=== PATIENT | female | born 2000 | race American Indian/Alaskan Native ===

== ENCOUNTER 2020-06-05 10:13 | Emergency (ER) | payer MEDICAID, OTHER ==
[2020-06-05 10:49] VITALS: BP 145/87; PULSE 81
[2020-06-05] MEDS ORDERED: Sodium Chloride 0.9% 10 ML Syringe FLUSH PRN ×2 (11:21→11:34)
[2020-06-05] MEDS ORDERED: Iopamidol 612 MG/ML 50 ML SDV IVPUSH ONE (11:34)
[2020-06-05] MEDS ORDERED: cefTRIAXone 2 GM in Sodium Chloride 0.9% 100 ML IV ONE (13:17)
--- NOTE | 2020-06-05 13:48 | EDM.PDOC ---
ED HPI GENERAL MEDICAL PROBLEM - General Chief Complaint: Skin Complaint Stated Complaint: INFECTION ON CHIN Time Seen by Provider: 06/05/20 10:43 Source of Information: Reports: Patient History Limitations: Reports: No Limitations - History of Present Illness INITIAL COMMENTS - FREE TEXT/NARRATIVE: The patient presents with an abscess to her chin. This has been going on for a few days. On Wednesday she was seen at [facility] and it was lanced and she was put on bactrim. She has more swelling and pain. She has no more discharge. She has no fever or chills. Onset: Gradual Duration: Day(s): Location: Reports: Face Quality: Reports: Burning Severity: Moderate Improves with: Reports: None Worsens with: Reports: None Associated Symptoms: Reports: No Other Symptoms Jaw Pain Score (Numeric/FACES): 4 - Related Data Allergies Allergy/AdvReac Type Severity Reaction Status Date / Time No Known Allergies Allergy Verified 06/05/20 10:48 Home Meds: Home Meds . [No Known Home Meds] 02/24/16 [History] Past Medical History - Past Health History Medical/Surgical History: Denies Medical/Surgical History Genitourinary History: Reports: UTI, Recurrent Social & Family History - Tobacco Use Smoking Status *Q: Current Every Day Smoker Years of Tobacco use: 4 Packs/Tins Daily: 0.5 - Caffeine Use Caffeine Use: Reports: Soda - Living Situation & Occupation Living situation: Reports: Single Occupation: Student ED ROS GENERAL - Review of Systems Review Of Systems: See Below Constitutional: Reports: No Symptoms HEENT: Reports: Other (Chin swelling) Respiratory: Reports: No Symptoms Cardiovascular: Reports: No Symptoms Endocrine: Reports: No Symptoms GI/Abdominal: Reports: No Symptoms : Reports: No Symptoms Musculoskeletal: Reports: No Symptoms ED EXAM, SKIN/RASH Exam: See Below Exam Limited By: No Limitations General Appearance: Alert, No Apparent Distress Ears: Normal External Exam Nose: Normal Inspection Head: Other (Erythema and edema to the chin with some swollen lymph nodes under her mandible) Neck: Normal Inspection, Supple, Non-Tender Respiratory/Chest: No Respiratory Distress, Lungs Clear, Normal Breath Sounds Cardiovascular: Regular Rate, Rhythm, No Edema, No Murmur GI/Abdominal: Soft, Non-Tender, No Organomegaly, No Mass Extremities: Normal Inspection Neurological: Alert, Oriented, No Motor/Sensory Deficits Course - Vital Signs Last Recorded V/S: Last Vital Signs Temp 98.1 F 06/05/20 10:46 Pulse 81 06/05/20 10:46 Resp 18 06/05/20 10:46 BP 145/87 H 06/05/20 10:46 Pulse Ox 100 06/05/20 10:46 - Orders/Labs/Meds Orders: Active Orders 24 hr Category Date Time Status Peripheral IV Care [RC] . DIRECTED Care 06/05/20 11:21 Active Maxillofacial with CM [Max Facial Sinus w Cont] [CT] Exams 06/05/20 11:22 Taken Stat Sodium Chloride 0.9% [Saline Flush] Med 06/05/20 11:21 Active 10 ml FLUSH ASDIRECTED PRN Sodium Chloride 0.9% [Saline Flush] Med 06/05/20 11:34 Active 10 ml FLUSH ONETIME PRN cefTRIAXone [Rocephin] 2 gm Med 06/05/20 13:17 Active Sodium Chloride 0.9% [Normal Saline] 100 ml IV ONETIME Peripheral IV Insertion Adult [OM.PC] Routine Oth 06/05/20 11:21 Ordered Medication Orders Ceftriaxone Sodium 2 gm/ (Sodium Chloride) 100 mls @ 200 mls/hr IV ONETIME ONE Stop: 06/05/20 13:46 Last Admin: 06/05/20 13:36 Dose: 200 mls/hr Documented by: MIRTA Sodium Chloride (Saline Flush) 10 ml FLUSH ASDIRECTED PRN PRN Reason: Keep Vein Open Last Admin: 06/05/20 11:59 Dose: 10 ml Documented by: MIRTA Sodium Chloride (Saline Flush) 10 ml FLUSH ONETIME PRN PRN Reason: IV FLUSH Last Admin: 06/05/20 12:06 Dose: 10 ml Documented by: SINCERE Labs: Laboratory Tests 06/05/20 06/05/20 Range/Units 12:18 12:18 WBC 9.65 (3.98-10.04) K/mm3 RBC 4.62 (3.98-5.22) M/mm3 Hgb 13.7 (11.2-15.7) gm/dl Hct 41.1 (34.1-44.9) % MCV 89.0 (79.4-94.8) fl MCH 29.7 (25.6-32.2) pg MCHC 33.3 (32.2-35.5) g/dl RDW Std Deviation 42.9 (36.4-46.3) fL Plt Count 293 (182-369) K/mm3 MPV 9.4 (9.4-12.3) fl C-Reactive Protein 3.7 H* (<1.0) mg/dL Meds: Medications Generic Name Dose Route Start Last Admin Trade Name Freq PRN Reason Stop Dose Admin Ceftriaxone Sodium 2 gm/ 100 mls @ 200 mls/hr 06/05/20 13:17 06/05/20 13:36 Sodium Chloride IV 06/05/20 13:46 200 mls/hr ONETIME ONE Administration Sodium Chloride 10 ml 06/05/20 11:21 06/05/20 11:59 Saline Flush FLUSH 10 ml ASDIRECTED PRN Administration Keep Vein Open Sodium Chloride 10 ml 06/05/20 11:34 06/05/20 12:06 Saline Flush FLUSH 10 ml ONETIME PRN Administration IV FLUSH Discontinued Medications Generic Name Dose Route Start Last Admin Trade Name Freq PRN Reason Stop Dose Admin Iopamidol 50 ml 06/05/20 11:34 06/05/20 12:06 Isovue-300 (61%) IVPUSH 06/05/20 11:35 50 ml ONETIME ONE Administration - Re-Assessments/Exams Free Text/Narrative Re-Assessment/Exam: 06/05/20 13:46 I ordered an IV saline lock, CT of her face, and labs. Her CBC looks good. Her CRP is elevated. Her CT shows right sided submental inflammatory changes with a small suspicion for an abscess. This does not appear big enough to drain. I have ordered rocephin 2 grams IV and she is on bactrim. Departure - Departure Time of Disposition: 13:50 Disposition: Home, Self-Care 01 Condition: Good Clinical Impression: Facial cellulitis - Discharge Information *PRESCRIPTION DRUG MONITORING PROGRAM REVIEWED*: Not Applicable *COPY OF PRESCRIPTION DRUG MONITORING REPORT IN PATIENT WALTER: Not Applicable Referrals: PCP,None [Primary Care Provider] - Herbert Fan MD [Physician] - 1 Week Additional Instructions: Put warm compresses on your chin 3 to 5 times per day. Take the bactrim 2 times per day until gone. Follow up with Dr Fan within a week if you are not better. Please return if you are worse. Sepsis Event Note (ED) - Evaluation Sepsis Screening Result: No Definite Risk - Focused Exam Vital Signs: Vital Signs Temp Pulse Resp BP Pulse Ox 06/05/20 10:46 98.1 F 81 18 145/87 H 100 - My Orders Last 24 Hours: My Active Orders 06/05/20 11:21 Peripheral IV Care [RC] . DIRECTED Sodium Chloride 0.9% [Saline Flush] 10 ml FLUSH ASDIRECTED PRN Peripheral IV Insertion Adult [OM.PC] Routine 06/05/20 11:22 Maxillofacial with CM [Max Facial Sinus w Cont] [CT] Stat 06/05/20 11:34 Sodium Chloride 0.9% [Saline Flush] 10 ml FLUSH ONETIME PRN 06/05/20 13:17 cefTRIAXone [Rocephin] 2 gm Sodium Chloride 0.9% [Normal Saline] 100 ml IV ONETIME - Assessment/Plan Last 24 Hours: My Active Orders 06/05/20 11:21 Peripheral IV Care [RC] . DIRECTED Sodium Chloride 0.9% [Saline Flush] 10 ml FLUSH ASDIRECTED PRN Peripheral IV Insertion Adult [OM.PC] Routine 06/05/20 11:22 Maxillofacial with CM [Max Facial Sinus w Cont] [CT] Stat 06/05/20 11:34 Sodium Chloride 0.9% [Saline Flush] 10 ml FLUSH ONETIME PRN 06/05/20 13:17 cefTRIAXone [Rocephin] 2 gm Sodium Chloride 0.9% [Normal Saline] 100 ml IV ONETIME
--- NOTE | 2020-07-16 10:56 | CT ---
PROCEDURE INFORMATION: Exam: CT Maxillofacial With Contrast Exam date and time: 06/05/2020 11:40 AM Age: 19 years old Clinical indication: Mass, lump, or swelling; Patient HX: Chin abscess and cellulitus TECHNIQUE: Imaging protocol: Computed tomography images of the face with intravenous contrast. Radiation optimization: All CT scans at this facility use at least one of these dose optimization techniques: automated exposure control; mA and/or kV adjustment per patient size (includes targeted exams where dose is matched to clinical indication); or iterative reconstruction. COMPARISON: No relevant prior studies available. FINDINGS: Orbital cavity: Orbits are normal. Globes are unremarkable. Bones/joints: There is an enlarged vein posterior to the skull base on the right image 4/59 measuring 11 mm. Paranasal sinuses: Normal. No air-fluid levels. Soft tissues: There are inflammatory changes noted chiefly on the right just adjacent to midline with a suspicion for a small early fluid collection in the submental region. The fluid collection if real would measure 4 mm on image 4/15. Lymph nodes: Numerous subcentimeter lymph nodes are seen throughout the neck. IMPRESSION: Right-sided submental inflammatory changes with a small suspicion for an abscess. Thank you for allowing us to participate in the care of your patient. Dictated and Authenticated by: Dragan Williamson MD 07/15/2020 1:26 PM Central Time ([place] & [place]) [place]
== END 2020-06-05 14:29 | disposition home or self-care (01) ==
LOC: JD.ED 10:13
DX: L03.211 Cellulitis of face (principal); F17.210 Nicotine dependence, cigarettes, uncomplicated
CPT/HCPCS: 36415; 70487; 85027; 86140; 96365; 99283; J0696; J7050; Q9967